=== PATIENT | male | born 1980 | race American Indian/Alaskan Native ===

== ENCOUNTER → 2024-07-17 14:11 | Outpatient (CLI) | payer OTHER, SELFPAY ==
--- NOTE | 2024-07-17 14:31 | DI.CT.S_ITS ---
PROCEDURE: CT CHEST HIGH RESOLUTION INDICATIONS: shortness of breath persistent after pneumonia TECHNIQUE: Noncontrast 1.0 and 5.0 mm thick contiguous axial sections from the pulmonary apex to the posterior costophrenic angles, with 7 mm thick coronal and sagittal MIP reformats. 1 mm thick dynamic expiratory images acquired through the upper, mid, and lower lungs. 1.0 mm thick axial sections acquired from the john to the posterior costophrenic angles in the prone end-inspiration position. For radiation dose reduction, the following was used: automated exposure control, adjustment of mA and/or kV according to patient size. COMPARISON: None. FINDINGS: Image quality: Diagnostic Lungs and pleura: No findings suggestive of fibrotic lung disease. No airspace consolidation, focal area of atelectasis or volume loss. No pleural effusions. Mild focal cystic changes versus emphysema seen at the right lung apex. Minimal heterogeneity on expiratory views, probably within physiologic limits. No significant changes on prone imaging. There are small pulmonary nodules under 5 mm for example in the right lung 5/43. Mediastinum, heart, and esophagus: Normal heart size. No pathologic lymph nodes by size criteria. Esophagus is unremarkable Chest wall and thyroid: Unremarkable Upper abdomen: No gross abnormality on these noncontrast images Partially seen distended stomach. Bones: There are degenerative changes. No acute or suspicious finding. IMPRESSION: No interstitial lung disease identified. No airspace consolidation or pleural effusions. There are small pulmonary nodules under 5 mm for example in the right lung 5/43. Follow-up is considered optional for high risk patients in 1 year. Mild focal emphysematous versus cystic changes at the right lung apex. Partially seen distended stomach Dictated by: Benjamin Henning M.D. on 07/17/2024 at 16:28 Approved by: Benjamin Henning M.D. on 07/17/2024 at 16:31
== END ==
PROVIDERS: Referring Provider Internal Medicine; Visit Provider Internal Medicine
DX: R06.02 Shortness of breath (principal); R91.8 Other nonspecific abnormal finding of lung field
CPT/HCPCS: 71250; 99213

== ENCOUNTER → 2024-07-23 10:01 | Outpatient (CLI) | payer OTHER, SELFPAY | PROVIDERS: Referring Provider Internal Medicine; Visit Provider Internal Medicine | DX: R06.02 Shortness of breath (principal); Z87.891 Personal history of nicotine dependence | CPT/HCPCS: 94060; 94726; 94729 ==